=== PATIENT | male | born 1940 | race Two or more races ===

== ENCOUNTER 2022-07-09 11:00 | Inpatient (IN) | payer OTHER ==
[~2022-07-09] VITALS: Ht 165.1 cm; Wt 58.5 kg
[2022-07-13] MEDS ORDERED: AMLODIPINE BESYL5 MG (13:24)
[2022-07-13] MEDS ORDERED: MAXIMUM D3325 MCG (13:24)
[2022-07-13] MEDS ORDERED: PANTOPRAZOLE SO40 MG (13:24)
[2022-07-13] MEDS ORDERED: RESTORIL30 MG (13:24)
== END 2022-07-14 12:22 | disposition home or self-care (01) | DRG 349 ==
LOC: O/R 07-13 07:46 → SURH 07-13 11:00
PROVIDERS: ADMIT Surgery; ATTEND Surgery
PROC: 0DBP7ZZ Excision of Rectum, Via Natural or Artificial Opening (ICD-10-PCS; principal; 2022-07-13 19:15)
DX: D12.8 Benign neoplasm of rectum (principal); K62.82 Dysplasia of anus; Z20.822 Contact with and (suspected) exposure to COVID-19